=== PATIENT | female | born 1955 | race Caucasian/White ===

== ENCOUNTER → 2023-08-27 | Outpatient (CLI) | payer MEDICAID, SELFPAY ==
--- NOTE | 2023-08-27 12:59 | MRI_ITS ---
STUDY: MRI RIGHT KNEE REASON FOR EXAM: Female, 67 years old. Assess for subchondral fracture, and other medial side causes knee pain. TECHNIQUE: Standardized fat and water weighted pulse sequences were obtained in all 3 orthogonal planes. COMPARISON: None. FINDINGS: There is a radial tear of the body of the medial meniscus (coronal T2 series 7 image 14). There is severe degenerative arthrosis of the medial femorotibial compartment with joint space narrowing, marginal osteophyte formation, moderate to high-grade chondromalacia, and subchondral marrow edema on both sides of the joint. There is a curvilinear subchondral trabecular stress fracture of the medial tibial plateau (coronal PD series 4 images 15-16; sagittal PD series 3 image 35). There is a mild grade I MCL sprain with periligamentous edema. Normal distal semimembranosus, gracilis and semitendinosus tendons. Normal lateral meniscus. Normal hyaline cartilage of the lateral femorotibial compartment. There is mild osteoarthritic spur formation of the lateral knee compartment. Normal proximal tibiofibular articulation. Normal lateral collateral (fibular) ligament. Normal popliteus tendon. Normal biceps femoris tendon. Normal anterior cruciate ligament (ACL). Normal posterior cruciate ligament (PCL). Moderate to high-grade chondromalacia along the patellar apex with underlying subchondral marrow edema. Congruent patellofemoral articulation. Normal medial and lateral patellar retinaculum. Normal quadriceps tendon. Normal patellar tendon. Normal Hoffa''s fat pad. There is a small joint effusion. There is a small popliteal cyst. There is mild subcutaneous soft tissue edema along the anterior aspect of the knee. MRI/Lower Ext Joint Only (Routine) IMPRESSION: Radial tear of the body of the medial meniscus. Tricompartment degenerative arthrosis, most severe in the medial femorotibial compartment. Curvilinear subchondral trabecular stress fracture of the medial tibial plateau. Mild grade I MCL sprain. Small joint effusion with a small popliteal cyst. Mild subcutaneous soft tissue edema along the anterior aspect of the knee. Electronically Signed: Alexis Hawkins MD at 14:45 EDT ,
== END | disposition home or self-care (01) ==
PROVIDERS: Referring Provider Orthopaedic Surgery Sports Medicine; Visit Provider Orthopaedic Surgery Sports Medicine
DX: M25.561 Pain in right knee (principal)
CPT/HCPCS: 73721